=== PATIENT | male | born 1945 | race Two or more races ===

== ENCOUNTER 2017-11-14 15:39 | Emergency (ER) | payer MEDICARE, BC ==
[~2017-11-14] VITALS: Ht 165.1 cm; Wt 71.7 kg
[~2017-11-14 15:39] MED LIST: CLON0.5T12 PO; FLUO40CA49 PO; PANT40TA4 PO; SIMV20TA6 PO
--- NOTE | 2017-11-14 15:45 | NUR ---
BIBRA FROM HOME FOR LOWER BACK PAIN S/P MECHANICAL FALL LAST NIGHT. A/OX4, BREATHING EVEN AND UNLABORED. NO SOB, NAD, VITALS STABLE. SAFETY AND COMFORT MEASURES IN PLACE. AWAITING MD ORDERS.
[2017-11-14] MEDS ORDERED: ONDANSETRON 4 MG TAB.RAPDIS PO ONE (16:30)
[2017-11-14] MEDS ORDERED: TRAMADOL HCL 50 MG TABLET PO ONE (16:30)
--- NOTE | 2017-11-14 16:30 | NUR ---
PATIENT TAKEN TO CT VIA STRETCHER
[2017-11-14] MEDS ORDERED: TRAMADOL HCL 50 MG TABLET ONE (16:33)
[2017-11-14] MEDS ORDERED: ONDANSETRON 4 MG TAB.RAPDIS ONE (16:34)
--- NOTE | 2017-11-14 16:45 | NUR ---
PATIENT RETURNED FROM CT IN STABLE CONDITION.
--- NOTE | 2017-11-14 16:53 | NUR ---
MEDICATED PATIENT PER MD ORDERS
[2017-11-14 18:59] VITALS: BP 142/81
--- NOTE | 2017-11-14 19:01 | NUR ---
Patient discharged to home in stable condition. Written and verbal after care instructions given. Patient verbalizes understanding of instruction.
== END 2017-11-14 19:01 | disposition home or self-care (01) ==
LOC: ER 15:42
DX: S09.8XXA Other specified injuries of head, initial encounter (principal); M54.5 Low back pain; F32.9 Major depressive disorder, single episode, unspecified; F41.9 Anxiety disorder, unspecified; W18.09XA Striking against other object with subsequent fall, initial encounter; Y93.89 Activity, other specified; Y92.89 Other specified places as the place of occurrence of the external cause; Y99.8 Other external cause status
CPT/HCPCS: 72131; 70450; 99284; A4606; Q0162; Z7610